=== PATIENT | female | born 1960 | race Caucasian/White ===

== ENCOUNTER 2022-08-28 15:12 | Outpatient (CLI) | payer BC | END 2022-08-28 15:13 | disposition home or self-care (01) | LOC: CSHMRI 15:12 | PROVIDERS: ATTEND Surgery | DX: R29.898 Other symptoms and signs involving the musculoskeletal system (principal); M54.16 Radiculopathy, lumbar region; M47.816 Spondylosis without myelopathy or radiculopathy, lumbar region; Z98.890 Other specified postprocedural states; M48.061 Spinal stenosis, lumbar region without neurogenic claudication | CPT/HCPCS: 72110; 72148 ==

== ENCOUNTER 2022-10-26 08:10 | Outpatient (CLI) | payer BC | END 2022-10-26 08:11 | disposition home or self-care (01) | LOC: CSHMAMMO 08:10 | PROVIDERS: ATTEND Family Medicine | DX: Z12.31 Encounter for screening mammogram for malignant neoplasm of breast (principal); Z80.3 Family history of malignant neoplasm of breast | CPT/HCPCS: 77063; 77067 ==

== ENCOUNTER 2023-04-19 14:42 | Outpatient (CLI) | payer BC | END 2023-04-19 14:43 | disposition home or self-care (01) | LOC: CSHULT 14:42 | PROVIDERS: ATTEND Otolaryngology Otolaryngic Allergy | DX: E04.1 Nontoxic single thyroid nodule (principal); E07.9 Disorder of thyroid, unspecified | CPT/HCPCS: 76536 ==

== ENCOUNTER 2023-10-30 09:00 | Outpatient (CLI) | payer BC | END 2023-10-30 09:01 | disposition home or self-care (01) | LOC: CSHMAMMO 09:00 | PROVIDERS: ATTEND Family Medicine | DX: Z12.31 Encounter for screening mammogram for malignant neoplasm of breast (principal); Z80.3 Family history of malignant neoplasm of breast | CPT/HCPCS: 77063; 77067 ==

== ENCOUNTER 2024-02-07 09:56 | Outpatient (CLI) | payer BC | END 2024-02-07 09:57 | disposition home or self-care (01) | LOC: CSHRAD 09:56 | PROVIDERS: ATTEND Family Medicine | DX: R05.9 Cough, unspecified (principal) | CPT/HCPCS: 71046 ==